=== PATIENT | female | born 2000 | race Caucasian/White ===

== ENCOUNTER 2021-10-01 13:28 | Emergency (ER) | payer BC, OTHER, SELFPAY ==
[2021-10-01 13:41] VITALS: BP 151/93; PULSE 80; RESP 18; TEMP 36.7; O2SAT 100; BMI 36.9
[2021-10-01] MEDS: LIDOCAINE PATCH 1 EACH ADH..PATCH TOP (16:29)
[2021-10-01] MEDS: KETOROLAC 30 MG/ML VIAL 15 MG IM (16:29)
--- NOTE | 2021-10-01 16:30 | ED.BACK ---
HPI - Back Pain/Injury <RUSSEL Curry - Last Filed: 10/01/21 16:40> General Chief Complaint: Back Pain/Injury Stated Complaint: pain lower back, ongoing a week,worse when bendin Time Seen by Provider: 10/01/21 16:09 Source: patient History of Present Illness HPI Narrative: 20-year-old female presents to the emergency department complaining of low back pain, and left-sided hip pain which he states started a few days ago it is worse when she bends over. She denies any known injury, she denies any fever, dysuria, abdominal pain, other back pain. She states she has a history of UTIs but states this is nothing like her previous UTIs. She endorses left-sided low back pain, tight muscles, feeling stiff and sore and is tender to touch. She denies any open wound, she denies any falls or known injury. Related Data Home Medications Medication Instructions Recorded Confirmed doxycycline hyclate 50 mg capsule 50 mg PO BID 05/12/21 05/12/21 metformin 500 mg tablet,extended 500 mg PO DAILY 05/12/21 05/12/21 release 24 hr Previous Rx's Medication Instructions Recorded lidocaine 5 % topical patch 1 patch TOPICAL DAILY PRN #15 ea 10/01/21 (Lidoderm) methocarbamol 500 mg tablet 500 mg PO TID PRN #20 tab 10/01/21 tramadol 50 mg tablet (Ultram) 50 mg PO BID PRN #10 tab 10/01/21 Allergies Allergy/AdvReac Type Severity Reaction Status Date / Time No Known Drug Allergies Allergy Unverified 05/12/21 15:33 Review of Systems <RUSSEL Curry - Last Filed: 10/01/21 16:40> Review of Systems Narrative: General: denies fever, chills, malaise, sweats, fatigue Head/Neck: denies headache, neck pain, dizziness Eyes: denies visual changes, eye pain Cardio: denies chest pain, palpitations, edema Respiratory: denies dyspnea, cough, orthopnea GI: denies abdominal pain, nausea, vomiting, or diarrhea : denies dysuria, hematuria, urinary retention, frequency or incontinence MSK: denies joint pain, muscle weakness Skin: denies rash, itching, skin lesions or other Neuro: denies numbness, tingling Patient History <RUSSEL Curry - Last Filed: 10/01/21 16:40> Medical History Tinea cruris Social History Smoking Status: Never smoker Smoking Status: Never smoker alcohol intake frequency: holidays/special occasions only Exam <RUSSEL Curry - Last Filed: 10/01/21 16:40> Narrative Exam Narrative: Independently reviewed vitals signs and nursing notes. General: cooperative, comfortable, in no acute distress, well developed and well groomed Head: atraumatic, symmetrical facial expressions Neck: supple, atraumatic, without lymphadenopathy. Eyes: pupils equal round and reactive, EOMI, conjunctiva normal Nose: nares patent, no rhinorrhea Mouth/Throat:moist mucus membranes Cardiovascular: regular rate and rhythm, no peripheral edema, warm extremities Respiratory: normal effort, able to speak in complete sentences, no audible wheezing, stridor, or rales. No retractions or tachypnea. GI: abdomen soft, nontender to palpation, nondistended, no masses, no exquisite tenderness with exam, without guarding or rebound. MSK: moves all extremities, ambulatory w/steady gait, neurovascularly intact, no weakness, tenderness to musculature adjacent to lumbar spine on the left Skin: brisk capillary refill, no rash, no erythema Neuro: normal speech and cognition, A&O x3, normal tone Psych: mental status is grossly normal, congruent mood, normal affect, pleasant and cooperative Initial Vital Signs Initial Vital Signs: Vital Signs Temperature 98.1 F 10/01/21 13:41 Pulse Rate 80 10/01/21 13:41 Respiratory Rate 18 10/01/21 13:41 Blood Pressure 151/93 H 10/01/21 13:41 Pulse Oximetry 100 10/01/21 13:41 Course <RUSSEL Curry - Last Filed: 10/01/21 16:40> Orders Ordered: Discontinued Medications Ketorolac Tromethamine (Ketorolac 30 Mg/Ml Vial) 15 mg IM NOW ONE Stop: 10/01/21 16:22 Last Admin: 10/01/21 16:29 Dose: 15 mg Documented by: DAWSON Lidocaine (Lidocaine Patch 1 Each Adh..Patch) 1 each TOP NOW ONE Stop: 10/01/21 16:22 Last Admin: 10/01/21 16:29 Dose: 1 each Documented by: DAWSON Vital Signs Vital signs: Vital Signs - 8 hr 10/01/21 13:41 Temperature 98.1 F Pulse Rate 80 Respiratory Rate 18 Blood Pressure 151/93 H Pulse Oximetry 100 MDM - Back Pain/Injury <RUSSEL Curry - Last Filed: 10/01/21 16:40> Lab Data Labs: Point of Care Testing Test Results Negative Urine Dip Bedside Urine Glucose Negative Bedside Urine Bilirubin - Negative Bedside Urine Ketone - Negative Urine Specific [place] 1.030 Bedside Urine Occult Blood - Negative Bedside Urine pH 6.0 Bedside Urine Protein - Negative Bedside Urine Urobilinogen - Negative Bedside Urine Nitrite - Negative Bedside Urine Leukocytes - Negative Esterase MDM Narrative Medical decision making narrative: This is a 20-year-old female presents to the emergency department for low back pain without known injury for the last 2-3 days. Patient's pain is worse with leg lift and bending over, she endorses muscle spasms in her lumbar spine, tenderness to palpation, denies any weakness, incontinence, fever, dysuria, abdominal pain, or other complaint. Patient was given Toradol in the emergency department, lidocaine patch, encouraged to follow-up with her primary care provider for a referral to physical therapy for evaluation. Her urine does not show any leukocytes or blood, was negative. Encourage patient to do heat packs, light activity, ibuprofen every 6 hours starting tomorrow, lidocaine patches, and Tylenol. She was given a prescription of tramadol for breakthrough pain. Encouraged to follow-up with her primary doctor if this is ongoing. Multiple etiologies of back pain considered including; Epidural abscess, cauda equina, mass occupying lesion, lumbar fracture, intra-abdominal pathology chronic neuropathic pain and other considered Patient is appropriate and amenable to discharge home. Vital signs are stable on repeat examination is unremarkable. Patient has been informed of results. Patient has been given strict return to ER precautions for any new or worsening symptoms. Patient understands to follow up closely with outpatient providers as instructed. Patient understands plan and agrees to discharge home. All questions and concerns answered at this time. Discharge Plan Departure Patient Disposition: Home Clinical Impression: Low back pain Qualifiers: Chronicity: acute Back pain laterality: left Sciatica presence: with sciatica Sciatica laterality: sciatica of left side Qualified Code(s): M54.42 - Lumbago with sciatica, left side Instructions: DI for Back Pain With Sciatica, DI for Back Spasm, DI for Back Strain or Sprain Activity Restrictions/Additional Instructions: *You have been diagnosed with likely a lumbar injury causing referred pain to your hip. Please follow-up with Debo Dominguez for referral to physical therapy for evaluation. In the meantime, please try the muscle relaxers, lidocaine patches, ibuprofen every 6 hours starting tomorrow combined with Tylenol every 6 hours. If this is not enough for your pain, you may try the tramadol. I hope that you start feeling better soon, your urine does not show any infection, it was also negative for . Please try heat packs, hot showers, light activity so that you do not become too stiff and sore. The muscle relaxers will make you sleepy, and tramadol will also do the same thing. CONTROLLED SUBSTANCE DISCHARGE (Narcotic/benzodiazepine/Flexeril/Phenergan) 1. You have been prescribed narcotic medications, it does have acetaminophen/Tylenol/paracetamol in it, DO NOT TAKE MORE THAN 4,00mg in 24 hours of Tylenol. *Tramadol does not contain tylenol. 2. Please understand that we cannot provide further refills of narcotics, benzodiazepines or controlled substances through the ED and her pain management will need to be through your provider. 3. While on these medications you cannot drive or operate heavy machinery. 4. You cannot sign legal documents or perform any duties such as this. 5. As long as you are taking opiate pain medications he should also be taking a stool softener such as Colace, Dulcolax, MiraLAX or prune juice, to help avoid constipation. *What to do: *Please continue to take your regular medications as directed. [x ] New medication prescriptions sent to your pharmacy: [Rj ] [ ] New medication written as a paper prescription [ ] No new medications given *Please follow up with your primary care provider in 2-3 days, call for an appointment. Let them know you were seen in the Emergency Department and that we asked that you be seen for follow-up. We will electronically transmit a record of today's note if your PCP is in our system *If you do not have a primary care provider please contact [phone] to establish care with one of the [facility] primary care providers. *Return to Emergency Department if you should have any new, worsening or concerning symptoms, such as [fever greater than 101F, chills, worsening pain, persistent vomiting or other bothersome symptoms] Prescriptions: New lidocaine [Lidoderm] 5 % adhesive patch,medicated 1 patch topical DAILY PRN (Reason: pain) Qty: 15 0RF Rx Instructions: leave on most painful area for up to 12 hrs methocarbamol 500 mg tablet 500 mg PO TID PRN (Reason: back pain) Qty: 20 0RF tramadol [Ultram] 50 mg tablet 50 mg PO BID PRN (Reason: pain) Qty: 10 0RF No Action doxycycline hyclate 50 mg capsule 50 mg PO BID 0RF metformin 500 mg tablet extended release 24 hr 500 mg PO DAILY 0RF Referrals: Debo Dominguez ARNP [Primary Care Provider] -
== END 2021-10-01 16:52 | disposition home or self-care (01) ==
PROVIDERS: Emergency Provider Nurse Practitioner Critical Care Medicine; PCP Nurse Practitioner Family
DX: M54.42 Lumbago with sciatica, left side (principal)
CPT/HCPCS: 81003; 81025; 96372; 99283; J1885